=== PATIENT | female | born 1950 | race Caucasian/White ===

== ENCOUNTER 2021-03-28 13:57 | Emergency (ER) | payer OTHER ==
[~2021-03-28] VITALS: Ht 162.6 cm; Wt 74.4 kg
[~2021-03-28 13:57] MED LIST: GLIPIZIDE5 GM; MEFOXIN
[2021-03-28] MEDS ORDERED: LOSARTAN POTASS25 MG PO (14:11)
[2021-03-28] MEDS ORDERED: GLIMEPIRIDE2 MG (14:11)
[2021-03-28] MEDS ORDERED: TIROSINT25 MCG PO (14:12)
[2021-03-28] MEDS ORDERED: LIPITOR20 MG PO (14:12)
[2021-03-28] MEDS ORDERED: VITAMIN D310 MCG/11 (14:12)
[2021-03-28] MEDS ORDERED: FORTAMET500 MG (14:12)
== END 2021-03-28 17:18 | disposition home or self-care (01) ==
LOC: ER 13:57
DX: H66.91 Otitis media, unspecified, right ear (principal); R51.9 Headache, unspecified

== ENCOUNTER 2024-12-13 09:53 | Outpatient (CLI) | payer OTHER ==
[~2024-12-13 09:53] MED LIST changes: +FORTAMET500 MG; +GLIMEPIRIDE2 MG; +LIPITOR20 MG PO; +LOSARTAN POTASS25 MG PO; +TIROSINT25 MCG PO; +VITAMIN D310 MCG/11
== END 2024-12-13 09:57 | disposition home or self-care (01) ==
LOC: SONOGRAMA 09:53
PROVIDERS: ATTEND Pathology Anatomic Pathology & Clinical Pathology
DX: D44.0 Neoplasm of uncertain behavior of thyroid gland (principal); E04.2 Nontoxic multinodular goiter